=== PATIENT | female | born 2000 | race African-American/Black ===

== ENCOUNTER → 2019-04-28 | Outpatient (REF) | payer OTHER ==
[2019-04-28 22:24] LABS: CHLAMYDIA DNA AMPLIFICATION POSITIVE (NEGATIVE); GC DNA AMPLIFICATION NEGATIVE (NEGATIVE)
== END ==
LOC: M LAB REF 11:03
PROVIDERS: ATTEND Physician Assistant
DX: R30.0 Dysuria (principal)